=== PATIENT | female | born 1965 | race Two or more races ===

== ENCOUNTER 2017-02-20 07:22 | Emergency (ER) | payer OTHER ==
[2017-02-20] MEDS ORDERED: NS 0.9% 1000 ML* 1,000 ML BOLUS ONE (07:52)
[2017-02-20] MEDS ORDERED: Famotidine IV* 10 MG/ML 2 ML (20 mg) IV SLOW PU ONE (07:53)
[2017-02-20] MEDS ORDERED: Ondansetron INJ* 2 MG/ML VIAL IV ONE (07:53)
--- NOTE | 2017-02-20 07:54 | UC ---
Abdominal Pain Female HPI - HPI Summary HPI Summary: 51 yo female with the onset yesterday PM of nausea/vomiting/diarrhea she has some epigastric pain prior to her vomiting ? hanane was volunteering at [facility] all day yesterday no other volunteers ill - History of Current Complaint Chief Complaint: UCGI Stated Complaint: VOMITING/DIARRHEA Time Seen by Provider: 02/20/17 07:47 Hx Obtained From: Patient Onset/Duration: Sudden Onset, Lasting Hours Timing: Constant Severity Initially: Moderate Severity Currently: Moderate Pain Intensity: 4 Pain Scale Used: 0-10 Numeric Location: Epigastric Radiates: No Character: Cramping Aggravating Factor(s): Nothing Alleviating Factor(s): Nothing Associated Signs and Symptoms: Positive: Diaphoresis, Nausea, Vomiting, Diarrhea Allergies/Adverse Reactions: Allergies Allergy/AdvReac Type Severity Reaction Status Date / Time Latex Allergy Rash And Verified 02/20/17 07:38 Itching Home Medications: Home Medications Naproxen [Naprosyn EC 375 MG TAB] 1 tab PO BID PRN 02/20/17 [History Confirmed 02/20/17] PMH/Surg Hx/FS Hx/Imm Hx Previously Healthy: Yes - Surgical History Surgical History: Yes Surgery Procedure, Year, and Place: APPENDECTOMY 2009 - Family History Known Family History: Positive: Hypertension - Social History Alcohol Use: None Substance Use Type: None Smoking Status (MU): Never Smoked Tobacco Review of Systems Constitutional: Fever - ??? Skin: Negative Eyes: Negative ENT: Negative Respiratory: Negative Cardiovascular: Negative Gastrointestinal: Abdominal Pain, Vomiting, Diarrhea, Nausea Genitourinary: Negative Motor: Negative Neurovascular: Negative Musculoskeletal: Negative Neurological: Negative Psychological: Negative All Other Systems Reviewed And Are Negative: Yes Physical Exam Triage Information Reviewed: Yes Appearance: Ill-Appearing - vomiting during my exam Vital Signs: Initial Vital Signs Temp 97.3 F 02/20/17 07:33 Pulse 75 02/20/17 07:33 Resp 16 02/20/17 07:33 BP 95/73 02/20/17 07:33 Pulse Ox 95 02/20/17 07:33 Vital Signs Reviewed: Yes Eyes: Positive: Conjunctiva Clear ENT: Positive: Hearing grossly normal. Negative: Nasal congestion, Nasal drainage, Trismus, Muffled/hoarse voice Neck: Positive: Supple, Nontender Respiratory: Positive: Lungs clear, Normal breath sounds, No respiratory distress, No accessory muscle use Cardiovascular: Positive: RRR, No Murmur, Pulses Normal Abdomen Description: Positive: No Organomegaly. Negative: Nontender - slight epigastric tenderness, CVA Tenderness (R), CVA Tenderness (L), Pulsatile Mass, Splenomegaly Musculoskeletal: Positive: ROM Intact, No Edema Neurological: Positive: Alert Psychological Exam: Normal Skin Exam: Normal Re-Evaluation - Re-Evaluation First Eval Re-Evaluation Time: 09:05 Change: Improved - no nausea/no abd pain, diarrhea x 2 here Abd Pain Female Course/Dx - Differential Dx/Diagnosis Provider Diagnoses: acute gastroenteritis. ?food poisoning Discharge - Discharge Plan Condition: Stable Disposition: HOME Prescriptions: Ondansetron TAB* [Zofran Tab*] 4 mg PO Q6H PRN #10 tab PRN Reason: Nausea Patient Education Materials: Gastroenteritis (ED), Acute Nausea and Vomiting ( ED) Referrals: Shahbaz Randolph MD [Primary Care Provider] - If Needed Additional Instructions: to ER for new or worsening symptoms especially high fever constant abdominal pain peristent diarrhea recheck in 1-2 days if not better
[2017-02-20 08:51] VITALS: BP 99/64
== END 2017-02-20 09:23 | disposition home or self-care (01) ==
LOC: UCEAST 07:22
DX: K52.9 Noninfective gastroenteritis and colitis, unspecified (principal); Z91.040 Latex allergy status
CPT/HCPCS: 87045; 87046; 87077; 87328; 87329; 87899; 93005; 96360; 96374; 96376; 99202; G0463; J2405

== ENCOUNTER 2019-09-12 17:04 | Emergency (ER) | payer OTHER ==
[2019-09-12 17:46] VITALS: BP 115/81
--- NOTE | 2019-09-12 18:16 | UC ---
Abdominal Pain Female HPI - HPI Summary HPI Summary: The patient is a 53-year-old female with the onset last evening of nausea vomiting and diarrhea. Her symptoms started about midnight. Since then she has had 5 or 6 episodes of vomiting and 4 episodes of diarrhea. She has noted no blood in her vomitus or diarrhea. She denies any headache or myalgias. She denies any fever. She denies any URI symptoms. She has no UTI symptoms. About a month ago she took amoxicillin for strep throat. She denies any recent travel. This morning she began to have some epigastric pain. It is very brief but severe. It occurs every 30 minutes or so. It lasts for less than a minute or 2. - History of Current Complaint Chief Complaint: UCAbdominalPain Stated Complaint: DIARRHEA Time Seen by Provider: 09/12/19 17:56 Hx Obtained From: Patient Hx Last Menstrual Period: post Onset/Duration: Gradual Onset, Lasting Hours Timing: Constant Severity Initially: Severe Severity Currently: Mild Pain Intensity: 7 - when she has the pain Pain Scale Used: 0-10 Numeric Location: Epigastric Radiates: No Character: Sharp Aggravating Factor(s): Nothing Alleviating Factor(s): Nothing Associated Signs and Symptoms: Positive: Decreased Appetite, Nausea, Vomiting, Diarrhea. Negative: Diaphoresis, Fever, Cough, Chest Pain, Dizzy, Back Pain, Constipation, Blood in Stool, Urinary Symptoms, Vaginal Bleeding, Vaginal Discharge Female Torso: 1 - tenderness here Allergies/Adverse Reactions: Allergies Allergy/AdvReac Type Severity Reaction Status Date / Time latex Allergy Severe itch Verified 09/12/19 17:46 PMH/Surg Hx/FS Hx/Imm Hx Previously Healthy: Yes - Surgical History Surgical History: Yes Surgery Procedure, Year, and Place: APPENDECTOMY 2009 - Family History Known Family History: Positive: Hypertension - Social History Alcohol Use: None Substance Use Type: None Smoking Status (MU): Never Smoked Tobacco Review of Systems All Other Systems Reviewed And Are Negative: Yes Constitutional: Positive: Negative Skin: Positive: Negative Eyes: Positive: Negative ENT: Positive: Negative Respiratory: Positive: Negative Cardiovascular: Positive: Negative Gastrointestinal: Positive: Abdominal Pain, Vomiting, Diarrhea, Nausea Genitourinary: Positive: Negative Motor: Positive: Negative Neurovascular: Positive: Negative Musculoskeletal: Positive: Negative Neurological: Positive: Negative Psychological: Positive: Negative Physical Exam Triage Information Reviewed: Yes Appearance: Well-Appearing, No Pain Distress, Well-Nourished Vital Signs: Initial Vital Signs Temp 98.7 F 09/12/19 17:40 Pulse 85 09/12/19 17:40 Resp 16 09/12/19 17:40 BP 115/81 09/12/19 17:40 Pulse Ox 98 09/12/19 17:40 Vital Signs Reviewed: Yes Eyes: Positive: Conjunctiva Clear ENT: Positive: Hearing grossly normal. Negative: Nasal congestion, Nasal drainage, Tonsillar exudate, Trismus, Muffled voice, Hoarse voice Dental Exam: Normal Neck: Positive: Supple, Nontender, No Lymphadenopathy Respiratory: Positive: Lungs clear, Normal breath sounds, No respiratory distress Cardiovascular: Positive: RRR, No Murmur, Pulses Normal Abdomen Description: Negative: Nontender - tender epigastrium Musculoskeletal: Positive: ROM Intact, No Edema Neurological: Positive: Alert Psychological Exam: Normal Skin Exam: Normal Abd Pain Female Course/Dx - Differential Dx/Diagnosis Provider Diagnosis: Acute gastroenteritis Discharge ED - Sign-Out/Discharge Documenting (check all that apply): Patient Departure All imaging exams completed and their final reports reviewed: No Studies - Discharge Plan Condition: Stable Disposition: HOME Patient Education Materials: Gastroenteritis (ED) Forms: *Work Release Referrals: Shahbaz Randolph MD [Primary Care Provider] - 2 Days (if not better) Additional Instructions: rest fluids stool studies pending TO ER IF YOU ABDOMINAL PAIN BECOMES CONSTANT OR NEW SYMPTOMS DEVELOP - Billing Disposition and Condition Condition: STABLE Disposition: Home
[2019-09-12] MEDS ORDERED: Ondansetron ODT TAB* 4 MG PO ONE (18:44)
== END 2019-09-12 18:58 | disposition home or self-care (01) ==
LOC: UCEAST 17:04
DX: K52.9 Noninfective gastroenteritis and colitis, unspecified (principal); Z91.040 Latex allergy status
CPT/HCPCS: 87045; 87046; 87328; 87329; 87493; 87899; 99212; A9270-GY; G0463